=== PATIENT | male | born 1950 | race Caucasian/White ===

== ENCOUNTER 2022-12-22 10:17 | Inpatient (IN) ==
--- NOTE | 2022-12-22 10:47 | Emergency Department Note ---
ED Visit Note Patient seen in conjunction with Dr. Hartman. For more details, please refer to their note. . Resident Activity Tracking Resident Involvement: Resident Care Provided Care Provided: Adult ED
--- NOTE | 2022-12-22 10:49 | Emergency Department Note ---
Impression & Plan Substernal chest pain, Bigeminy, Hypomagnesemia ED Provider Note Name: FAVIOLA Barroso PAGE Age: 72 Sex: M Arrives Via: Walk-In Informant: Patient ED Provider: George Coker MD Chief Complaint: Chest pain Impression: As per impressions above Medical Decision Makin-year-old male arrives for evaluation of chest pain. Patient notes exertional chest pain for the last 4 days. He does have a history of known CAD but states he been doing well for some time. Does have a history of diabetes, hypertension, dyslipidemia and nicotine use. On arrival patient has no further chest pain. He has clear evidence of bigeminy with a pulse in the 30s/40s but heart rate in the 60s/70s. BP is good and stable. Laboratory work-up reveals normal troponin at this time so no evidence of ACS this point but in the setting of the significant exertional chest pain and low pulse discussed with hospitalist for cardiac rule out and further work-up. Patient does have mildly low magnesium which was repleted while here in the ER. Triage/Nursing Notes reviewed by Me Differentials:Cardiac ischemia, aortic dissection, pulmonary embolism, pneumothorax, pneumonia, pericarditis, myocarditis, esophageal rupture, GERD, cholecystitis, pancreatitis, musculoskeletal, as well as other pathologies. Vital Signs: reviewed and remarkable for no significant abnormalities Interventions: Normal saline bolus IV, magnesium 1 g IV Labs:Reviewed and remarkable for normal troponin, low magnesium all other labs reviewed by me Imagin view chest x-ray as per my informal interpretation reveals no infiltrate, effusion, pneumothorax, widened mediastinum EKG:As per my interpretation. Indication chest pain with exertion. Bigeminy with a rate of 69 and a QTc of 458. There is no overt ischemic finding. No previous EKG for comparison Cardiac/Tele Monitoring: Cardiac Monitoring: An Order was placed for continuous cardiac monitoring. The monitor shows a rate of 60 with a bigeminy rhythm. Consults:Dr Ag Landers hospitalist Plan: Disposition: Hospitalist Condition: Good History of Present Illness:72-year-old gentleman arrives for evaluation of chest discomfort. Patient notes for the last 4 days worsening chest discomfort. Worse with exertion. Denies any shortness of breath, syncope, nausea, vomiting or other concerning signs or symptoms. Denies any falls, trauma, injuries. Has a history of double bypass about 10 years ago. Does vape nicotine products. Has a history of hypertension, dyslipidemia, diabetes. Denies any current symptoms. Past History:CAD status post bypass, hypertension, dyslipidemia, smoker Home Medications:Farxiga, Lantus, metoprolol amongst other Allergies:Denies any drug allergies Vitals:Blood Pressure: 155/70, Pulse 70, RR 19, T 36.6C, O2 96% on RA Physical Exam: GENERAL: Patient is well appearing and in no acute distress. RESPIRATORY: No dyspnea. Clear to auscultation and equal bilaterally. No wheeze, no rhonchi. CARDIOVASCULAR: Bradycardic periodically irregular no murmur appreciated GASTROINTESTINAL: Abdomen soft, non-tender, no peritonitis.Bowel sounds positive.No masses appreciated. EXTREMITIES: Normal motion all extremities, no cyanosis, no edema. NEUROLOGIC: Alert and oriented, no focal neurologic deficit appreciated SKIN: No rash, no jaundice, no diaphoresis. PSYCH: Appropriate GCS: 15 ED Course: Times/Reassessments: Patient stable throughout no further chest pain and agreeable to hospitalization George Coker MD Past Med/Surg History Medical History Diabetes Heart disease Hypertension Surgical History H/O heart bypass surgery Social History Smoking Status: Current every day smoker Hx Alcohol Use: No Hx Substance Use: No Current Living Situation Comment: Lives with his sister current occupational status: retired Feels Safe at Home: Yes Allergies Allergies Allergy/AdvReac Type Severity Reaction Status Date / Time antibiotics AdvReac Diarrhea Uncoded 12/22/22 12:07 Home Meds Home Medications Medication Instructions Recorded Confirmed aspirin 81 mg capsule 81 mg PO DAILY 12/22/22 12/22/22 dapagliflozin propanediol 10 mg 10 mg PO DAILY 12/22/22 12/22/22 tablet (Farxiga) insulin glargine 100 unit/mL (3 30 unit subcut HS 12/22/22 12/22/22 mL) subcutaneous pen (Lantus Solostar U-100 Insulin) metoprolol succinate 50 mg 50 mg PO BID 12/22/22 12/22/22 tablet,extended release 24 hr omeprazole 40 mg capsule,delayed 40 mg PO DAILY 12/22/22 12/22/22 release rosuvastatin 40 mg tablet 40 mg PO HS 12/22/22 12/22/22 sacubitril 97 mg-valsartan 103 mg 1 tab PO BID 12/22/22 12/22/22 tablet (Entresto) Results & Data (ED) Vital Signs Vital Signs - 24 hr 12/22/22 10:21 12/22/22 10:30 12/22/22 10:40 Temperature 36.6 C Temperature Source Temporal Artery Scan Pulse Rate 37 L 69 70 Pulse Rate [Apical] Pulse Rhythm [Apical] Respiratory Rate 20 19 Respiratory Effort / Characteristics Non-Labored Respiratory Depth Normal Blood Pressure 131/68 155/70 H Blood Pressure [Right Arm] Blood Pressure Mean 89 98 Blood Pressure Mean [Right Arm] Pulse Oximetry 95 96 Oxygen Delivery Method Room Air Room Air Sepsis Recent Fever Within 48 Hours No Sepsis New/Unexplained Change in Mental Status N/A Sepsis Action Taken by Nursing No Action Required 12/22/22 12:40 12/22/22 13:40 Temperature Temperature Source Pulse Rate 67 Pulse Rate [Apical] 76 Pulse Rhythm [Apical] Irregular Respiratory Rate 16 18 Respiratory Effort / Characteristics Non-Labored Respiratory Depth Normal Blood Pressure 151/50 H Blood Pressure [Right Arm] 130/80 Blood Pressure Mean 83 Blood Pressure Mean [Right Arm] 96 Pulse Oximetry 95 93 Oxygen Delivery Method Room Air Sepsis Recent Fever Within 48 Hours Sepsis New/Unexplained Change in Mental Status Sepsis Action Taken by Nursing Laboratory Data 12/22/22 10:31 12/22/22 10:31 Lab Results 12/22/22 12/22/22 12/22/22 Range/Units 10:31 10:31 10:31 WBC 5.44 (4.8-10.8) K/ul RBC 5.61 (4.70-6.10) M/uL Hgb 14.5 (14.0-18.0) g/dl POC Hgb (14.0-18.0) g/dl Hct 43.8 (42.0-52.0) % POC Hct (42-52) % MCV 78.1 L (80.0-100.0) fL MCH 25.8 (25.0-34.0) pg MCHC 33.1 (32.0-36.0) g/dL RDW Std Deviation 44.7 (36.4-46.3) fL RDW Coeff of Miriam 15.9 H (11.5-14.5) % Plt Count 124 L (130-400) K/uL MPV 10.2 (9.4-12.4) fL Immature Gran % (Auto) 0.4 % Neut % (Auto) 64.3 % Lymph % (Auto) 18.0 % Benton % (Auto) 10.3 % Eos % (Auto) 6.3 % Baso % (Auto) 0.7 % Neut # (Auto) 3.50 (1.40-6.50) K/uL Lymph # (Auto) 0.98 L (1.20-3.40) K/uL Benton # (Auto) 0.56 (0.11-0.59) K/uL Eos # (Auto) 0.34 (0.00-0.50) K/uL Baso # (Auto) 0.04 (0.00-0.20) K/uL Immature Gran # (Auto) 0.02 (0.01-0.20) K/uL POC Sodium (135-144) mmol/L Sodium 140 (136-145) mmol/L POC Potassium (3.3-5.0) mmol/L Potassium 4.2 (3.5-5.1) mmol/L POC Chloride (101-112) mmol/L Chloride 108 H (98-107) mmol/L Carbon Dioxide 26 (21-32) mmol/L POC Total CO2 (24-31) mmol/L Anion Gap 6 (3-11) POC Anion Gap (16-25) mmol/L POC BUN (7-18) mg/dl BUN 15 (6-23) mg/dl Creatinine 1.29 (0.6-1.4) mg/dl POC Creatinine (0.6-1.3) mg/dl Est Cr Clr Drug Dosing Not Reportable Est GFR ( Amer) 64.7 ml/min Est GFR (Non-Af Amer) 55.8 ml/min BUN/Creatinine Ratio 11.6 (10-20) Glucose 148 H (70-99(Fasting)) mg/dl POC Glucose (other) (70-99) mg/dl Calcium 8.8 (8.6-10.3) mg/dl POC Ioniz Calcium Salma (1.12-1.32) mmol/l Magnesium 1.5 L (1.7-2.4) mg/dl Total Bilirubin 0.6 (0.2-1.0) mg/dl Direct Bilirubin 0.1 (0-0.2) mg/dl AST 17 (13-39) U/L ALT 18 (7-52) U/L Alkaline Phosphatase 43 (34-104) U/L Troponin I High Sens 8.6 (0-20) pg/ml Total Protein 6.2 (6.0-8.3) gm/dl Albumin 3.9 (3.4-5.0) gm/dl Lyme Disease IgG Ab Negative (Negative) Lyme Disease IgM Ab Negative (Negative) 12/22/22 Range/Units 10:37 WBC (4.8-10.8) K/ul RBC (4.70-6.10) M/uL Hgb (14.0-18.0) g/dl POC Hgb 15.3 (14.0-18.0) g/dl Hct (42.0-52.0) % POC Hct 45 (42-52) % MCV (80.0-100.0) fL MCH (25.0-34.0) pg MCHC (32.0-36.0) g/dL RDW Std Deviation (36.4-46.3) fL RDW Coeff of Miriam (11.5-14.5) % Plt Count (130-400) K/uL MPV (9.4-12.4) fL Immature Gran % (Auto) % Neut % (Auto) % Lymph % (Auto) % Benton % (Auto) % Eos % (Auto) % Baso % (Auto) % Neut # (Auto) (1.40-6.50) K/uL Lymph # (Auto) (1.20-3.40) K/uL Benton # (Auto) (0.11-0.59) K/uL Eos # (Auto) (0.00-0.50) K/uL Baso # (Auto) (0.00-0.20) K/uL Immature Gran # (Auto) (0.01-0.20) K/uL POC Sodium 143 (135-144) mmol/L Sodium (136-145) mmol/L POC Potassium 4.2 (3.3-5.0) mmol/L Potassium (3.5-5.1) mmol/L POC Chloride 105 (101-112) mmol/L Chloride (98-107) mmol/L Carbon Dioxide (21-32) mmol/L POC Total CO2 23 L (24-31) mmol/L Anion Gap (3-11) POC Anion Gap 20.0 (16-25) mmol/L POC BUN 14 (7-18) mg/dl BUN (6-23) mg/dl Creatinine (0.6-1.4) mg/dl POC Creatinine 1.3 (0.6-1.3) mg/dl Est Cr Clr Drug Dosing Est GFR ( Amer) ml/min Est GFR (Non-Af Amer) ml/min BUN/Creatinine Ratio (10-20) Glucose (70-99(Fasting)) mg/dl POC Glucose (other) 149 H (70-99) mg/dl Calcium (8.6-10.3) mg/dl POC Ioniz Calcium Salma 1.17 (1.12-1.32) mmol/l Magnesium (1.7-2.4) mg/dl Total Bilirubin (0.2-1.0) mg/dl Direct Bilirubin (0-0.2) mg/dl AST (13-39) U/L ALT (7-52) U/L Alkaline Phosphatase (34-104) U/L Troponin I High Sens (0-20) pg/ml Total Protein (6.0-8.3) gm/dl Albumin (3.4-5.0) gm/dl Lyme Disease IgG Ab (Negative) Lyme Disease IgM Ab (Negative) Administered Medications Magnesium Sulfate/Dextrose (Magnesium Sulfate / D5w) 1 gm in 100 mls @ 50 mls/hr IV ONE ONE Stop: 12/22/22 15:59 Last Admin: 12/22/22 13:45 Dose: 50 mls/hr Documented By: KAREEM Discontinued Medications Magnesium Sulfate/Dextrose (Magnesium Sulfate / D5w) 1 gm in 100 mls @ 100 mls/hr IV NOW STA Stop: 12/22/22 12:32 Last Infusion: 12/22/22 13:02 Dose: 0 mls/hr Documented By: Admin: 12/22/22 12:02 Dose: 100 mls/hr Documented By: KIRK Nicotine (Nicotine 21 Mg/24 Hr Tdsy) 21 mg TD NOW ONE Stop: 12/22/22 12:46 Last Admin: 12/22/22 12:40 Dose: 21 mg Documented By: KIRK Imaging Data Radiologist's Impression: Chest X-Ray 12/22/22 10:39 XR chest 1V portable CLINICAL HISTORY: chest pressure TECHNIQUE: Single frontal radiograph of the chest was obtained. Comparison: None available at the time of this dictation. FINDINGS: Median sternotomy wires are unchanged. Cardiomegaly is noted. The lungs are clear. No evidence of pleural effusion or pneumothorax. IMPRESSION: No acute chest disease. Cardiomegaly is noted. ACT 112: Negative or not required by law. Electronically signed by: Latrell Pham M.D. 12/22/2022 11:01 AM Discharge Plan Visit Data Chief Complaint: Chest Pain Stated Complaint: HAVING TROUBLE WITH HIS HEART ED Provider: George Coker Discharge Problem: Substernal chest pain, Bigeminy, Hypomagnesemia Forms Stand Alone Forms: [facility] Prescriptions Prescriptions: No Action omeprazole 40 mg capsule,delayed release(DR/EC) 40 mg PO DAILY rosuvastatin 40 mg tablet 40 mg PO HS insulin glargine [Lantus Solostar U-100 Insulin] 100 unit/mL (3 mL) insulin pen 30 unit SUBCUT HS Entresto 97-103 mg tablet 1 tab PO BID aspirin 81 mg Capsule 81 mg PO DAILY metoprolol succinate 50 mg tablet extended release 24 hr 50 mg PO BID Farxiga 10 mg tablet 10 mg PO DAILY Referrals Referrals: Alin Evans PA-C [Primary Care Provider] -
[2022-12-22 10:50] LABS: iSTAT Creatinine 1.3 mg/dl (0.6-1.3); iSTAT Hemoglobin 15.3 g/dl (14.0-18.0); iSTAT Ionized Calcium 1.17 mmol/l (1.12-1.32); iSTAT Potassium 4.2 mmol/L (3.3-5.0)
--- NOTE | 2022-12-22 11:02 | XRay Report ---
XR chest 1V portable CLINICAL HISTORY: chest pressure TECHNIQUE: Single frontal radiograph of the chest was obtained. Comparison: None available at the time of this dictation. FINDINGS: Median sternotomy wires are unchanged. Cardiomegaly is noted. The lungs are clear. No evidence of ple ural effusion or pneumothorax. IMPRESSION: No acute chest disease. Cardiomegaly is noted. ACT 112: Negative or not required by law. Electronically signed by: Latrell Pham M.D. 12/22/2022 11:01 AM
[2022-12-22 11:09] LABS: Basophils # (auto) 0.04 K/uL (0.00-0.20); Basophils % (auto) 0.7 %; Eosinophils # (auto) 0.34 K/uL (0.00-0.50); Eosinophils % (auto) 6.3 %; Hematocrit (blood only) 43.8 % (42.0-52.0); Hemoglobin 14.5 g/dl (14.0-18.0); Immature Granulocytes # (auto) 0.02 K/uL (0.01-0.20); Immature Granulocytes % (auto) 0.4 %; Lymphocytes # (auto) 0.98 K/uL (1.20-3.40); Mean Corpuscular Hemoglobin 25.8 pg (25.0-34.0); Mean Corpuscular Hgb Conc 33.1 g/dL (32.0-36.0); Mean Corpuscular Volume 78.1 fL (80.0-100.0); Mean Platelet Volume 10.2 fL (9.4-12.4); Monocytes # (auto) 0.56 K/uL (0.11-0.59); Monocytes % (auto) 10.3 %; Neutrophils % (auto) 64.3 %; Platelet Count 124 K/uL (130-400); RDW Coefficient of Variation 15.9 % (11.5-14.5); RDW Standard Deviation 44.7 fL (36.4-46.3); Red Blood Count 5.61 M/uL (4.70-6.10); White Blood Count 5.44 K/ul (4.8-10.8)
[2022-12-22 11:29] LABS: Alanine Aminotransferase 18 U/L (7-52); Albumin Level 3.9 gm/dl (3.4-5.0); Alkaline Phosphatase 43 U/L (34-104); Anion Gap 6 (3-11); Aspartate Aminotransferase 17 U/L (13-39); BUN Creatinine Ratio 11.6 (10-20); Bilirubin Direct 0.1 mg/dl (0-0.2); Bilirubin,Total 0.6 mg/dl (0.2-1.0); Blood Urea Nitrogen 15 mg/dl (6-23); Calcium 8.8 mg/dl (8.6-10.3); Carbon Dioxide 26 mmol/L (21-32); Chloride 108 mmol/L (98-107); Est GFR (African American) 64.7 ml/min; Est GFR (Non-African American) 55.8 ml/min; Glucose 148 mg/dl (70-99(Fasting)); Magnesium 1.5 mg/dl (1.7-2.4); Potassium 4.2 mmol/L (3.5-5.1); Sodium 140 mmol/L (136-145); Total Protein 6.2 gm/dl (6.0-8.3)
[2022-12-22] MEDS ORDERED: MAGNESIUM SULFATE / D5W 1 GM/100 ML BAG IV STA (11:33)
[2022-12-22 11:35] LABS: Troponin I High Sensitivity 8.6 pg/ml (0-20)
[2022-12-22] MEDS ORDERED: NICOTINE 21 MG/24 HR TDSY TD ONE (12:45)
--- NOTE | 2022-12-22 12:49 | History & Physical Report ---
Date of Service December 22, 2022 Assessment & Plan (1) Chest pain: (2) Bigeminy: (3) History of CAD (coronary artery disease): Plan: Admit to telemetry Patient presenting from home with reports of exertional shortness of breath, chest discomfort, palpitations. There are no outside records available to review at this time. Patient reports history of CABG x2 in 2011. Follows with general maintenance engineer Dr. Jimenez with [facility]. In the ED, EKG shows sinus rhythm with bigeminy Initial HS troponin negative Check Lyme screen Continue to trend troponin, resting echo ? Underlying CHF given that patient is on Entresto -- will obtain records from PCP and general maintenance engineer Continue ASA, statin, beta-sánchez Cardiology consult, Dr. Conrad notified by ED provider (4) Diabetes: Plan: Unknown Hgb A1c, will check with a.m. labs Hold oral agents, continue Lantus, add NovoLog per protocol DVT PROPHYLAXIS SQ Lovenox Patient seen in collaboration with Dr. Luong I spent a total of 75 minutes coordinating, documenting, and providing care for this patient excluding time spent in the performance of separately billed services. This included personally reviewing all current laboratories and imaging studies, medication reconciliation, outpatient chart review, and discussion with specialists. History of Present Illness Chief Complaint: Shortness of breath, chest pain Primary Care Provider: Alin Evans PA-C 72-year-old male with PMH CAD s/p CABG x 2 2011, DM type II, GERD, and other problems listed below who presents to the ED for evaluation of chest pain and shortness of breath. History obtained from the patient. There are no outside records to review. Patient reports exertional shortness of breath over the past 4 days. He reports a "strange feeling" in his chest that he states he cannot describe. Reports symptoms are similar to what he had prior to his CABG in 2012. He reports he feels palpitations at night when he lies down. Denies orthopnea and lower extremity edema. No lightheadedness, dizziness, diaphoresis, syncopal events. States he has a chronic cough from smoking history, cough is slightly worse than baseline. Cough is nonproductive. Denies fevers and chills. No abdominal pain, nausea, vomiting, diarrhea. Denies urinary symptoms. In the ED, EKG shows a sinus rhythm with bigeminy. Vitals are stable. Initial HS troponin is negative. Allergies Allergy/AdvReac Type Severity Reaction Status Date / Time antibiotics AdvReac Diarrhea Uncoded 12/22/22 12:07 Home Medications Medication Instructions Recorded Confirmed Type aspirin 81 mg capsule 81 mg PO DAILY 12/22/22 12/22/22 History dapagliflozin propanediol 10 mg 10 mg PO DAILY 12/22/22 12/22/22 History tablet (Farxiga) insulin glargine 100 unit/mL (3 30 unit subcut HS 12/22/22 12/22/22 History mL) subcutaneous pen (Lantus Solostar U-100 Insulin) metoprolol succinate 50 mg 50 mg PO BID 12/22/22 12/22/22 History tablet,extended release 24 hr omeprazole 40 mg capsule,delayed 40 mg PO DAILY 12/22/22 12/22/22 History release rosuvastatin 40 mg tablet 40 mg PO HS 12/22/22 12/22/22 History sacubitril 97 mg-valsartan 103 mg 1 tab PO BID 12/22/22 12/22/22 History tablet (Entresto) Past Med/Surg History Medical History Diabetes Heart disease Hypertension Surgical History H/O heart bypass surgery Social History Smoking Status: Current every day smoker Hx Alcohol Use: No Hx Substance Use: No Current Living Situation Comment: Lives with his sister current occupational status: retired Feels Safe at Home: Yes Review of Systems Review of Systems: All systems reviewed & are unremarkable except as noted in HPI & below Physical Exam Physical Exam: please refer to Dr. Luong's addendum for physical exam Results & Data Results & Data Vital Signs (Past 12 Hours) Vital Signs Temp Pulse Resp BP Pulse Ox O2 Del Method 12/22/22 10:40 70 19 155/70 H 96 Room Air 12/22/22 10:30 69 12/22/22 10:21 36.6 C 37 L 20 131/68 95 Room Air Laboratory Results Short CBC 12/22/22 Range/Units 10:31 WBC 5.44 (4.8-10.8) K/ul Hgb 14.5 (14.0-18.0) g/dl Hct 43.8 (42.0-52.0) % Plt Count 124 L (130-400) K/uL BMP 12/22/22 10:31 Sodium 140 Potassium 4.2 Chloride 108 H Carbon Dioxide 26 BUN 15 Creatinine 1.29 Glucose 148 H Calcium 8.8 Liver Function 12/22/22 Range/Units 10:31 Total Bilirubin 0.6 (0.2-1.0) mg/dl Direct Bilirubin 0.1 (0-0.2) mg/dl AST 17 (13-39) U/L ALT 18 (7-52) U/L Alkaline Phosphatase 43 (34-104) U/L Albumin 3.9 (3.4-5.0) gm/dl Diagnostic Findings Chest X-Ray 12/22/22 10:39 XR chest 1V portable CLINICAL HISTORY: chest pressure TECHNIQUE: Single frontal radiograph of the chest was obtained. Comparison: None available at the time of this dictation. FINDINGS: Median sternotomy wires are unchanged. Cardiomegaly is noted. The lungs are clear. No evidence of pleural effusion or pneumothorax. IMPRESSION: No acute chest disease. Cardiomegaly is noted. ACT 112: Negative or not required by law. Electronically signed by: Latrell Pham M.D. 12/22/2022 11:01 AM Code Status & VTE Plan VTE Prophylaxis Plan VTE Prophylaxis will be ordered: Yes Supervising Physician Co-Signing Physician Notes Pt seen and examined by me, care coordinated w/ Alma DOMINGUEZ, pls refer to her note above for further detail. Pt is 72 yo M with CAD s/p CABG x 2 in 2012, DM type II on insulin, GERD,who presents with chest pain and shortness of breath. Pt follows w/ PCP and cardiology at [facility] and this time there are no records to review, records were requested. Patient reports exertional shortness of breath over the past 4 days, and palpitations, denies any chest pressure or chest pain and cannot quite describe the feeling. Reports symptoms are similar to what he had prior to his CABG in 2012. No lightheadedness, dizziness, diaphoresis, syncopal events. States he has a chronic cough from smoking, perhaps slightly worse than baseline. Cough is nonproductive. Denies fevers and chills. No abdominal pain, nausea, vomiting, diarrhea. Denies urinary symptoms. He is laying in bed currently in ED in [facility]. reports no discomfort. pads applied on pt's chest. Pt is awake oriented, answering appropriately. Lung exam w/ positive mild diffuse rhonchi, no wheezing. Heart sounds regular/ bradycardic w/ ectopy. No LE edema noted. Abdomen soft, nontender. Skin is warm and dry. In the ED, EKG shows a sinus rhythm with bigeminy. Initial HS troponin is negative. Cardiology notified by ED provider - will further consult with them. Will obtain echocardiogram and continue trend troponin, and monitor on tele. MD Ag
[2022-12-22 13:30] LABS: Lyme Ab IgG w/WB Rflx Negative (Negative); Lyme Ab IgM w/WB Rflx Negative (Negative)
[2022-12-22] MEDS ORDERED: MAGNESIUM SULFATE / D5W 1 GM/100 ML BAG IV ONE (14:00)
[2022-12-22] MEDS ORDERED: CARBOHYDRATES FOR HYPOGLYCEMIA PO PRN (15:03)
[2022-12-22] MEDS ORDERED: ACETAMINOPHEN 325 MG TAB PO PRN (15:03)
[2022-12-22] MEDS ORDERED: GLUCOSE 10 TAB/TUBE PO PRN (15:03)
[2022-12-22] MEDS ORDERED: GLUCOSE 40% GEL 15 GM TUBE PO PRN (15:03)
[2022-12-22] MEDS ORDERED: GLUCAGON FOR INJ 1 MG VIAL SQ PRN (15:03)
[2022-12-22] MEDS ORDERED: DEXTROSE 50% 50 ML SYRINGE IV PRN (15:03)
[2022-12-22] MEDS: ENOXAPARIN INJ 40 MG/0.4 ML SYR SQ SCH (16:58)
--- NOTE | 2022-12-22 17:08 | Cardiology Consultation ---
Date of Consultation December 22, 2022 Assessment & Plan (1) Acute heart failure with preserved ejection fraction (HFpEF): (2) Substernal chest pain: (3) Dyspnea on exertion: (4) CAD (coronary artery disease): (5) S/P CABG x 2: (6) S/P coronary artery stent placement: (7) Dyslipidemia: (8) Frequent PVCs: Plan ASSESSMENT/PLAN: 1. Acute heart failure with preserved EF/dyspnea on exertion: No obvious JVD but has lower extremity edema which has recently worsened and does not maintain a low-sodium diet. Presumably has a history of heart failure based on his medications. Lasix 20 mg IV x1. Clinical history suggestive of hypervolemia. Low-sodium diet, less than 2000 mg daily. Strict I's and O's while hospitalized. Daily weights. We discussed the importance of a low-sodium diet at home as well. BNP and TSH ordered. D-dimer ordered. BNP significantly elevated. Based on his history, may have heart failure with improved EF. Continue SGLT2 inhibitor, Entresto, metoprolol succinate. 2. Chest pain: Given exertional mild chest discomfort and exertional dyspnea, if symptoms do not resolve with treatment as above, would consider noninvasive ischemic evaluation. No rest pain. High-sensitivity troponin is negative. Could be related to heart failure/hypervolemia. 3. CAD s/p PCI and then CABG x 2: Details not known. Records requested from previous cardiologists in [place] and [facility]. Continue aspirin 81 mg daily. Continue beta-sánchez and high intensity statin therapy. 4. Smoking: Recommended that he stop smoking altogether. 5. Hypertension: Blood pressure normotensive to mildly hypertensive. Blood pressure may improve with diuretic as above. 6. Dyslipidemia: Continue high intensity statin therapy. Goal LCL < 70. 7. PVCs: Reports palpitations at night but otherwise denies palpitations. PVCs not likely responsible for his presentation. Reported low pulse, appears to represent pulse deficit on palpation but heart rate is reasonable on telemetry. Discussed the diagnosis. Echo completed. 8. Edema: Asymmetric, worse in the left lower extremity. Likely due to history of vein harvest from the left lower extremity but recommend Doppler to evaluate for DVT. 9. Disposition: Cardiology will continue to follow. Follow-up with Dr. Jimenez of [facility] upon discharge. Patient care communicated with Dennise Lima of the admitting hospitalist service. Thank you for allowing me to participate in the care of your patient. Please call for any other questions or concerns. Sincerely, Donal Conrad M.D. History of Present Illness Reason for Consultation: Chest pain, PVCs Requesting Physician: Dennise Lima Attending Physician: Javier Luong MD History of Present Illness Mr. Veras is a very pleasant 72-year-old gentleman with a history significant for CAD s/p PCI followed by CABG x 2 ([place] 2011), prior cardial infarction, type 2 diabetes, hypertension, and dyslipidemia. He also has a possible history of cardiomyopathy and heart failure. He receives most of his cardiology care in [place] and reports having a PCI followed 2 days later by CABG x2 in 2011. He does not know the details. He moved to [place] a few years ago and has been seen by Dr. Jimenez in [facility] on 2 occasions. Unfortunately there are no available records for review in regards to his cardiac history. He believes he had multiple myocardial infarctions in the past and after discussion, recalls being told that his heart was weakened. He does not recall being told that he has heart failure but has been taking Entresto, Farxiga, and metoprolol succinate. For the past 4 to 5 days, he has had worsening dyspnea on exertion climbing stairs and in general. It feels like there is something in his chest and had a hard time explaining it and said if he had to describe it as a pain he would use the word pressure but very mild. It is a substernal chest discomfort that occurs also with exertion. He has mild orthopnea over the past 4 to 5 days and noted that his left foot has been more swollen than his right. He recalls having a swollen left leg following CABG many years ago but until the past 4 to 5 days, no recent edema. He denies palpitations in general unless he is laying in bed when he feels as though his heart is racing. He denies syncope, near syncope, melena, hematochezia, or hematuria. He adds salt to his food and does not maintain a low-sodium diet. He does not weigh himself regularly. He has not been on a diuretic. In the emergency department, it was noted that he is in sinus rhythm but with PVCs, occasionally in a bigeminal pattern. I was called while he was in the emergency department about bradycardia noted while checking a manual pulse, although heart rate on the monitor was in the 60s. He was asymptomatic with these PVCs while sitting in the emergency department. Review of systems: As above. Review of systems otherwise negative/unremarkable. Family history: Noncontributory. Social history: Has smoked 1.5 packs of cigarettes per day in the past and currently vapes. Denies alcohol or drug abuse. He lives alone. x2. No children. 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 He was unaccompanied. Allergies Allergy/AdvReac Type Severity Reaction Status Date / Time antibiotics AdvReac Diarrhea Uncoded 12/22/22 12:07 Home Medications Medication Instructions Recorded Confirmed Type aspirin 81 mg capsule 81 mg PO DAILY 12/22/22 12/22/22 History dapagliflozin propanediol 10 mg 10 mg PO DAILY 12/22/22 12/22/22 History tablet (Farxiga) insulin glargine 100 unit/mL (3 30 unit subcut HS 12/22/22 12/22/22 History mL) subcutaneous pen (Lantus Solostar U-100 Insulin) metoprolol succinate 50 mg 50 mg PO BID 12/22/22 12/22/22 History tablet,extended release 24 hr omeprazole 40 mg capsule,delayed 40 mg PO DAILY 12/22/22 12/22/22 History release rosuvastatin 40 mg tablet 40 mg PO HS 12/22/22 12/22/22 History sacubitril 97 mg-valsartan 103 mg 1 tab PO BID 12/22/22 12/22/22 History tablet (Entresto) Patient History Medical History CAD (coronary artery disease) Dyslipidemia Frequent PVCs Hypertension Type 2 diabetes mellitus Surgical History (Updated 12/22/22 @ 22:19 by Heath Conrad MD) S/P CABG x 2 S/P coronary artery stent placement Social History Smoking Status: Current every day smoker Tobacco Type: E-cigarettes / Vaping Tobacco Cessation Education Requested by Patient: No Hx Alcohol Use: No Hx Substance Use: No Preferred Language: Spanish Communication Ability: Effective Town Clerk Required: No Beliefs That Will Affect Care: None Current Living Situation: Alone Current Living Situation Comment: Lives with his sister current occupational status: retired Other Information That Helps Us Care for You: No Feels Safe at Home: Yes Safety Concerns: Feels Safe At This Time Assistive Devices: None Physical Exam Physical Exam: Gen.: No acute distress. Alert and oriented. HEENT: Anicteric sclera. Neck: No appreciable JVD or hepatojugular reflux while sitting upright. No bruits. Normal carotid upstrokes bilaterally. Cardiac: No ventricular heave. Regular with ectopy. Normal S1-S2. No murmurs, rubs, or gallops. Pulmonary: Clear to auscultation bilaterally without wheezes, rales, or rhonchi. Abdomen: Soft, nontender, nondistended, with normoactive bowel sounds. No bruits noted. Extremities: 2+ radial pulses bilaterally. 1+ posterior tibialis pulses bilaterally. 1+ left lower extremity edema. Trace right lower extremity edema. (s/p left SVG harvest). No cyanosis. Psychiatric: Affect appears appropriate. Results & Data Vital Signs (Past 12 Hours) Vital Signs Temp Pulse Pulse Resp BP BP Pulse Ox 12/22/22 16:00 12/22/22 16:00 36.6 C 64 16 140/70 98 12/22/22 14:31 57 L 12/22/22 13:40 67 18 151/50 H 93 12/22/22 12:40 76 16 130/80 95 12/22/22 10:40 70 19 155/70 H 96 12/22/22 10:30 69 12/22/22 10:21 36.6 C 37 L 20 131/68 95 Pulse Ox O2 Del Method O2 Del Method 12/22/22 16:00 99 Room Air 12/22/22 16:00 Room Air 12/22/22 14:31 12/22/22 13:40 12/22/22 12:40 Room Air 12/22/22 10:40 Room Air 12/22/22 10:30 12/22/22 10:21 Room Air Laboratory Results Laboratory Results - last 24 hr 12/22/22 12/22/22 12/22/22 10:31 10:31 10:31 WBC 5.44 RBC 5.61 Hgb 14.5 POC Hgb Hct 43.8 POC Hct MCV 78.1 L MCH 25.8 MCHC 33.1 RDW Std Deviation 44.7 RDW Coeff of Miriam 15.9 H Plt Count 124 L MPV 10.2 Immature Gran % (Auto) 0.4 Neut % (Auto) 64.3 Lymph % (Auto) 18.0 Hayes % (Auto) 10.3 Eos % (Auto) 6.3 Baso % (Auto) 0.7 Neut # (Auto) 3.50 Lymph # (Auto) 0.98 L Hayes # (Auto) 0.56 Eos # (Auto) 0.34 Baso # (Auto) 0.04 Immature Gran # (Auto) 0.02 POC Sodium Sodium 140 POC Potassium Potassium 4.2 POC Chloride Chloride 108 H Carbon Dioxide 26 POC Total CO2 Anion Gap 6 POC Anion Gap POC BUN BUN 15 Creatinine 1.29 POC Creatinine Est Cr Clr Drug Dosing Not Reportable Est GFR ( Amer) 64.7 Est GFR (Non-Af Amer) 55.8 BUN/Creatinine Ratio 11.6 Glucose 148 H POC Glucose (other) Calcium 8.8 POC Ioniz Calcium Salma Magnesium 1.5 L Total Bilirubin 0.6 Direct Bilirubin 0.1 AST 17 ALT 18 Alkaline Phosphatase 43 Troponin I High Sens 8.6 Total Protein 6.2 Albumin 3.9 Lyme Disease IgG Ab Negative Lyme Disease IgM Ab Negative 12/22/22 12/22/22 10:37 16:20 WBC RBC Hgb POC Hgb 15.3 Hct POC Hct 45 MCV MCH MCHC RDW Std Deviation RDW Coeff of Miriam Plt Count MPV Immature Gran % (Auto) Neut % (Auto) Lymph % (Auto) Hayes % (Auto) Eos % (Auto) Baso % (Auto) Neut # (Auto) Lymph # (Auto) Hayes # (Auto) Eos # (Auto) Baso # (Auto) Immature Gran # (Auto) POC Sodium 143 Sodium POC Potassium 4.2 Potassium POC Chloride 105 Chloride Carbon Dioxide POC Total CO2 23 L Anion Gap POC Anion Gap 20.0 POC BUN 14 BUN Creatinine POC Creatinine 1.3 Est Cr Clr Drug Dosing Est GFR ( Amer) Est GFR (Non-Af Amer) BUN/Creatinine Ratio Glucose POC Glucose (other) 149 H Calcium POC Ioniz Calcium Salma 1.17 Magnesium Total Bilirubin Direct Bilirubin AST ALT Alkaline Phosphatase Troponin I High Sens 9.1 Total Protein Albumin Lyme Disease IgG Ab Lyme Disease IgM Ab Diagnostic Findings Echo personally reviewed from 12/22/2022 (interpreted by [facility] [employer]): Analysis likely affected by frequent PVCs but overall, LV systolic function appears normal. Estimated EF 55 to 60%. No obvious regional wall motion abnormalities. Mild to moderate MR. Top normal RVSP; 37 mmHg. ECG personally reviewed 12/22/2022: Sinus rhythm with frequent PVCs in a bigeminal pattern at 69 bpm. Nonspecific T wave abnormality. Labs reviewed and notable for normal high-sensitivity troponin x2, normal potassium, hypomagnesemia, normal hemoglobin and mild thrombocytopenia. Chest x-ray 12/22/2022: No acute disease per radiology. Previous cardiology records requested for review from [place] home restoration service supervisor/facility and [facility] home restoration service supervisor, Dr. Jimenez. Discussed with ER nursing staff to send for records and sign medical release. Medications Administered Current Inpatient Medications Acetaminophen (Acetaminophen 325 Mg Tab) 650 mg PO Q4H PRN PRN Reason: Pain or Fever Stop: 01/21/23 15:02 Aspirin (Aspirin 81 Mg Ectab) 81 mg PO DAILY CLIF Stop: 01/22/23 08:59 Dextrose (Dextrose 50% 50 Ml Syringe) 25 - 50 ml IV UD PRN; Protocol PRN Reason: Hypoglycemia Protocol Stop: 01/21/23 15:02 Enoxaparin Sodium (Enoxaparin Inj 40 Mg/0.4 Ml Syr) 40 mg SQ Q24H CLIF Stop: 01/21/23 15:59 Last Admin: 12/22/22 16:58 Dose: 40 mg Furosemide (Furosemide Inj 20 Mg/2 Ml Vial) 20 mg IV ONE ONE Stop: 12/22/22 17:11 Glucagon (Glucagon For Inj 1 Mg Vial) 1 mg SQ UD PRN; Protocol PRN Reason: Hypoglycemia Protocol Stop: 01/21/23 15:02 Glucose (Glucose 10 Tab/Tube) 4 - 8 tab PO UD PRN; Protocol PRN Reason: Hypoglycemia Treatment Stop: 01/21/23 15:02 Glucose (Glucose 40% Gel 15 Gm Tube) 15 - 30 gm PO UD PRN; Protocol PRN Reason: Hypoglycemia Protocol Stop: 01/21/23 15:02 Insulin Aspart (Insulin Aspart Per Unit Charge) 0 units SC ACHS CLIF Stop: 01/21/23 16:29 Insulin Glargine (Lantus Per Unit Charge) 20 units SC HS CLIF Stop: 01/21/23 20:59 Metoprolol Succinate (Metoprolol Succ 50mg Ext Rel Tab) 50 mg PO BID CLIF Stop: 01/21/23 20:59 Miscellaneous (Remove Nicoderm Patch) 1 each N/A DAILY@0859 [facility] Stop: 01/21/23 08:58 Miscellaneous (Carbohydrates For Hypoglycemia ) 15 - 30 gm PO UD PRN PRN Reason: Hypoglycemia Protocol Stop: 01/21/23 15:02 Nicotine (Nicotine 21 Mg/24 Hr Tdsy) 21 mg TD QAM CLIF Stop: 01/22/23 08:59 Pantoprazole Sodium (Pantoprazole 40 Mg Tab) 40 mg PO DAILY [facility]; Protocol Stop: 01/22/23 08:59 Rosuvastatin Calcium (Rosuvastatin Calcium 20 Mg Tab) 40 mg PO HS [facility] Stop: 01/21/23 20:59 Sacubitril/Valsartan (Valsartan/Sacubitril 103/97mg Tab) 1 tab PO BID [facility] Stop: 01/21/23 20:59 PG Care Time/CCT Total # of Minutes Spent Total Time Spent with Patient: Total time spent is greater than 50% in coordination of care (as documented) at patient's floor/unit and/or counseling patient: Coding Level of Care Code 50691 INT INP/OBS CARE 3/75MIN Diagnoses Acute heart failure with preserved ejection fraction (HFpEF) I50.31 Substernal chest pain R07.2 Dyspnea on exertion R06.09 CAD (coronary artery disease) I25.10 S/P CABG x 2 Z95.1 S/P coronary artery stent placement Z95.5 Dyslipidemia E78.5 Frequent PVCs I49.3
[2022-12-22] MEDS ORDERED: FUROSEMIDE INJ 20 MG/2 ML VIAL IV ONE (17:10)
[2022-12-22] MEDS: INSULIN ASPART PER UNIT CHARGE SC SCH ×2 (17:52→20:42)
[2022-12-22 19:00] LABS: D Dimer 690 ug/L FEU (0-500)
[2022-12-22] MEDS: METOPROLOL SUCC 50MG EXT REL TAB PO SCH (20:39)
--- NOTE | 2022-12-22 20:39 | Ultrasound Report ---
ULTRASOUND LEFT LOWER EXTREMITY VENOUS CLINICAL HISTORY: Left leg swelling. COMPARISON STUDY: No priors. TECHNIQUE: Real-time, grayscale, and color Doppler sonography of the deep veins of the left lower ext remity was performed from the inguinal crease to the calf. Compression and augmentation were utilized . FINDINGS: There is no sonographic evidence of deep venous thrombosis identified in the left lower ext remity. The common femoral, superficial femoral, and popliteal veins are patent and normally compress ible. The greater saphenous vein and the profunda femoris vein at the junction with the common femora l vein are clear. The visualized calf veins are patent. IMPRESSION: There is no sonographic evidence of deep venous thrombosis identified in the left lower e xtremity. ACT 112: Negative or not required by law. Electronically signed by: Cisco Worthy M.D. 12/22/2022 8:37 PM
[2022-12-22] MEDS: VALSARTAN/SACUBITRIL 103/97MG TAB PO SCH (20:40)
[2022-12-22] MEDS: ROSUVASTATIN CALCIUM 20 MG TAB PO SCH (20:40)
[2022-12-22] MEDS: LANTUS PER UNIT CHARGE SC SCH (20:44)
[2022-12-23] MEDS ORDERED: IOVERSOL 350 MG 125mL Prefilled Syringe IV ONE (00:04)
--- NOTE | 2022-12-23 00:41 | CT Scan Report ---
Exam(s): CTA CHEST IV Amt: 116 ML OPTIRAY 350 EXAM: CT Angiography Chest With Intravenous Contrast CLINICAL HISTORY: Reason for exam: PE. TECHNIQUE: Axial computed tomographic angiography images of the chest with intravenous contrast. CTDI is 41 mGy and DLP is 814.13 mGy-cm. Automated exposure control was utilized for the study. A dose lowering technique was utilized adhering to the principles of ALARA. MIP reconstructed images were created and reviewed. COMPARISON: Comparison made to prior chest x-ray from the same day. FINDINGS: Pulmonary arteries: Unremarkable. No pulmonary embolism. Aorta: Ectasia of the ascending aorta measured 34 mm in diameter. No thoracic aortic aneurysm. Lungs: Moderate to the peribronchial thickening of the central and peripheral bronchi. No mass. No consolidation. Pleural space: Small bilateral pleural effusions. No significant effusion. No pneumothorax. Heart: Heavily calcified atherosclerotic disease of the coronary arteries. Cardiomegaly. No significant pericardial effusion. No evidence of RV dysfunction. Bones/joints: No acute fracture. No dislocation. Soft tissues: Bilateral thyroid nodules. Lymph nodes: Prominent mediastinal and hilar lymph nodes. IMPRESSION: No evidence of pulmonary emboli. Findings concern for bronchitis with small bilateral pleural effusions. Prominent mediastinal and hilar lymph nodes. Cardiomegaly with heavily calcified atherosclerotic disease of the coronary arteries. Electronically signed by: Brenda Peñaloza MD 12/23/22 00:40 AM
[2022-12-23 06:51] LABS: Hematocrit (blood only) 42.4 % (42.0-52.0); Hemoglobin 13.8 g/dl (14.0-18.0); Mean Corpuscular Hemoglobin 25.6 pg (25.0-34.0); Mean Corpuscular Hgb Conc 32.5 g/dL (32.0-36.0); Mean Corpuscular Volume 78.7 fL (80.0-100.0); Mean Platelet Volume 10.4 fL (9.4-12.4); Platelet Count 119 K/uL (130-400); RDW Coefficient of Variation 15.9 % (11.5-14.5); RDW Standard Deviation 44.8 fL (36.4-46.3); Red Blood Count 5.39 M/uL (4.70-6.10); White Blood Count 5.44 K/ul (4.8-10.8)
[2022-12-23 07:11] LABS: BUN Creatinine Ratio 11.6 (10-20); Calcium 8.6 mg/dl (8.6-10.3); Creatinine Clr Calc Pharmacy 53.3 ml/min; Est GFR (African American) 64.7 ml/min; Est GFR (Non-African American) 55.8 ml/min; Magnesium 1.9 mg/dl (1.7-2.4); Potassium 4.2 mmol/L (3.5-5.1)
[2022-12-23 07:12] LABS: Estimated Average Glucose 160 mg/dl; Hemoglobin A1C 7.2 % (4.5-5.6)
[2022-12-23] MEDS: ASPIRIN 81 MG ECTAB PO SCH (08:30)
[2022-12-23] MEDS: NICOTINE 21 MG/24 HR TDSY TD SCH (08:31)
[2022-12-23] MEDS: METOPROLOL SUCC 50MG EXT REL TAB PO SCH ×2 (08:31→21:07)
[2022-12-23] MEDS: VALSARTAN/SACUBITRIL 103/97MG TAB PO SCH ×2 (08:31→21:06)
[2022-12-23] MEDS: INSULIN ASPART PER UNIT CHARGE SC SCH ×4 (08:38→21:02)
[2022-12-23] MEDS: PANTOprazole 40 MG TAB PO SCH (09:13)
--- NOTE | 2022-12-23 10:24 | Cardiology Progress Note ---
Date of Service December 23, 2022 Assessment & Plan (1) Acute heart failure with preserved ejection fraction (HFpEF): (2) Substernal chest pain: (3) Dyspnea on exertion: (4) CAD (coronary artery disease): (5) S/P CABG x 2: (6) S/P coronary artery stent placement: (7) Dyslipidemia: (8) Frequent PVCs: Plan ASSESSMENT/PLAN: 1. Acute heart failure with preserved EF/dyspnea on exertion: Volume status seems much improved. Breathing not yet back to baseline. Agree with additional Lasix. Lasix 40 mg IV x1 ordered by primary hospitalist. We discussed the importance of low-sodium diet, less than 2000 mg daily upon discharge. Recommended daily weights at home and close follow-up with his primary equipment engineering technician and/or PCP. Continue SGLT2 inhibitor, Entresto, metoprolol succinate. Monitor renal function and electrolytes closely with diuresis. Would recommend oral diuretic upon discharge, likely Lasix 20 mg once daily with close follow-up labs and evaluation in the outpatient setting. Consider fluid restriction given hyponatremia of 1.5 L daily. 2. Chest pain: He has not had any further chest discomfort. Symptoms were likely driven by heart failure. No urgent indication for ischemic evaluation. If necessary, can be done as an outpatient. 3. CAD s/p PCI and then CABG x 2: Details not known. Records requested from previous cardiologists in [place] and [facility], but not yet available. Continue aspirin 81 mg daily. Continue beta-sánchez and high intensity statin therapy. 4. Smoking: Smoking cessation. 5. Hypertension: Blood pressure normotensive to mildly hypertensive. More diuretic today. 6. Dyslipidemia: Continue high intensity statin therapy. Goal LCL < 70. 7. PVCs: Reports palpitations at night but otherwise denies palpitations. PVCs not likely responsible for his presentation. Reported low pulse, appears to represent pulse deficit on palpation but heart rate is reasonable on telemetry. 8. Edema: Asymmetric, worse in the left lower extremity. Likely due to history of vein harvest from the left lower extremity. No DVT noted on Doppler. Edema much improved with diuretic. 9. Disposition: Cardiology will continue to follow. Follow-up with Dr. Jimenez of [facility] upon discharge. Patient care to merly with Dr. Atkinson of the primary hospitalist service. Admission and Anticipated Discharge Date Admission Date: December 22, 2022 Subjective No further chest pain. No orthopnea or shortness of breath at rest. Still has mild dyspnea on exertion but improved from presentation. Edema has improved. Feels better after Lasix. Denies syncope, near syncope, palpitations, or bleeding. Physical Exam Physical Exam: Gen.: No acute distress. Alert and oriented. HEENT: Anicteric sclera. Neck: No appreciable JVD or hepatojugular reflux. Cardiac: No ventricular heave. Regular with ectopy. Normal S1-S2. No murmurs, rubs, or gallops. Pulmonary: Clear to auscultation bilaterally without wheezes, rales, or rhonchi. Abdomen: Soft, nontender, nondistended, with normoactive bowel sounds. No bruits noted. Extremities: 2+ radial pulses bilaterally. 1+ posterior tibialis pulses bilaterally. Trace left lower extremity edema. (s/p left SVG harvest). No cyanosis. Psychiatric: Affect appears appropriate. Results & Data Vital Signs (Past 12 Hours) Vital Signs Temp Pulse Pulse Resp BP Pulse Ox O2 Del Method 12/23/22 08:26 36.3 C L 70 18 154/102 H 95 Room Air 12/23/22 08:00 56 L 12/23/22 02:26 36.7 C 78 18 101/61 93 Room Air 12/23/22 00:44 62 12/22/22 22:33 36.9 C 60 18 112/62 93 Room Air Intake & Output 12/21/22 12/22/22 12/23/22 12/24/22 06:59 06:59 06:59 06:59 Intake Total 470 / 470 Output Total 1000 / 1000 Balance -530 / -530 Weight 180 lb 12.465 oz Laboratory Results Laboratory Results - last 24 hr 12/22/22 12/22/22 12/22/22 10:31 10:31 10:31 WBC 5.44 RBC 5.61 Hgb 14.5 POC Hgb Hct 43.8 POC Hct MCV 78.1 L MCH 25.8 MCHC 33.1 RDW Std Deviation 44.7 RDW Coeff of Miriam 15.9 H Plt Count 124 L MPV 10.2 Immature Gran % (Auto) 0.4 Neut % (Auto) 64.3 Lymph % (Auto) 18.0 Coffey % (Auto) 10.3 Eos % (Auto) 6.3 Baso % (Auto) 0.7 Neut # (Auto) 3.50 Lymph # (Auto) 0.98 L Coffey # (Auto) 0.56 Eos # (Auto) 0.34 Baso # (Auto) 0.04 Immature Gran # (Auto) 0.02 D-Dimer POC Sodium Sodium 140 POC Potassium Potassium 4.2 POC Chloride Chloride 108 H Carbon Dioxide 26 POC Total CO2 Anion Gap 6 POC Anion Gap POC BUN BUN 15 Creatinine 1.29 POC Creatinine Est Cr Clr Drug Dosing Not Reportable Est GFR ( Amer) 64.7 Est GFR (Non-Af Amer) 55.8 BUN/Creatinine Ratio 11.6 Glucose 148 H POC Glucose POC Glucose (other) Estimat Average Glucose Hemoglobin A1c Calcium 8.8 POC Ioniz Calcium Aslma Magnesium 1.5 L Total Bilirubin 0.6 Direct Bilirubin 0.1 AST 17 ALT 18 Alkaline Phosphatase 43 Troponin I High Sens 8.6 B-Natriuretic Peptide Total Protein 6.2 Albumin 3.9 TSH Lyme Disease IgG Ab Negative Lyme Disease IgM Ab Negative 12/22/22 12/22/22 12/22/22 10:37 16:20 16:20 WBC RBC Hgb POC Hgb 15.3 Hct POC Hct 45 MCV MCH MCHC RDW Std Deviation RDW Coeff of Miriam Plt Count MPV Immature Gran % (Auto) Neut % (Auto) Lymph % (Auto) Coffey % (Auto) Eos % (Auto) Baso % (Auto) Neut # (Auto) Lymph # (Auto) Coffey # (Auto) Eos # (Auto) Baso # (Auto) Immature Gran # (Auto) D-Dimer POC Sodium 143 Sodium POC Potassium 4.2 Potassium POC Chloride 105 Chloride Carbon Dioxide POC Total CO2 23 L Anion Gap POC Anion Gap 20.0 POC BUN 14 BUN Creatinine POC Creatinine 1.3 Est Cr Clr Drug Dosing Est GFR ( Amer) Est GFR (Non-Af Amer) BUN/Creatinine Ratio Glucose POC Glucose POC Glucose (other) 149 H Estimat Average Glucose Hemoglobin A1c Calcium POC Ioniz Calcium Salma 1.17 Magnesium Total Bilirubin Direct Bilirubin AST ALT Alkaline Phosphatase Troponin I High Sens 9.1 B-Natriuretic Peptide Total Protein Albumin TSH 0.901 Lyme Disease IgG Ab Lyme Disease IgM Ab 12/22/22 12/22/22 12/22/22 16:21 16:57 17:33 WBC RBC Hgb POC Hgb Hct POC Hct MCV MCH MCHC RDW Std Deviation RDW Coeff of Miriam Plt Count MPV Immature Gran % (Auto) Neut % (Auto) Lymph % (Auto) Coffey % (Auto) Eos % (Auto) Baso % (Auto) Neut # (Auto) Lymph # (Auto) Coffey # (Auto) Eos # (Auto) Baso # (Auto) Immature Gran # (Auto) D-Dimer 690 H* POC Sodium Sodium POC Potassium Potassium POC Chloride Chloride Carbon Dioxide POC Total CO2 Anion Gap POC Anion Gap POC BUN BUN Creatinine POC Creatinine Est Cr Clr Drug Dosing Est GFR ( Amer) Est GFR (Non-Af Amer) BUN/Creatinine Ratio Glucose POC Glucose 68 L* POC Glucose (other) Estimat Average Glucose Hemoglobin A1c Calcium POC Ioniz Calcium Salma Magnesium Total Bilirubin Direct Bilirubin AST ALT Alkaline Phosphatase Troponin I High Sens B-Natriuretic Peptide 1397 H Total Protein Albumin TSH Lyme Disease IgG Ab Lyme Disease IgM Ab 12/22/22 12/22/22 12/22/22 17:35 20:27 22:34 WBC RBC Hgb POC Hgb Hct POC Hct MCV MCH MCHC RDW Std Deviation RDW Coeff of Miriam Plt Count MPV Immature Gran % (Auto) Neut % (Auto) Lymph % (Auto) Coffey % (Auto) Eos % (Auto) Baso % (Auto) Neut # (Auto) Lymph # (Auto) Coffey # (Auto) Eos # (Auto) Baso # (Auto) Immature Gran # (Auto) D-Dimer POC Sodium Sodium POC Potassium Potassium POC Chloride Chloride Carbon Dioxide POC Total CO2 Anion Gap POC Anion Gap POC BUN BUN Creatinine POC Creatinine Est Cr Clr Drug Dosing Est GFR ( Amer) Est GFR (Non-Af Amer) BUN/Creatinine Ratio Glucose POC Glucose 100 H 161 H POC Glucose (other) Estimat Average Glucose Hemoglobin A1c Calcium POC Ioniz Calcium Salma Magnesium Total Bilirubin Direct Bilirubin AST ALT Alkaline Phosphatase Troponin I High Sens 10.2 B-Natriuretic Peptide Total Protein Albumin TSH Lyme Disease IgG Ab Lyme Disease IgM Ab 12/23/22 12/23/22 12/23/22 06:06 06:06 06:06 WBC 5.44 RBC 5.39 Hgb 13.8 L POC Hgb Hct 42.4 POC Hct MCV 78.7 L MCH 25.6 MCHC 32.5 RDW Std Deviation 44.8 RDW Coeff of Miriam 15.9 H Plt Count 119 L MPV 10.4 Immature Gran % (Auto) Neut % (Auto) Lymph % (Auto) Coffey % (Auto) Eos % (Auto) Baso % (Auto) Neut # (Auto) Lymph # (Auto) Coffey # (Auto) Eos # (Auto) Baso # (Auto) Immature Gran # (Auto) D-Dimer POC Sodium Sodium 135 L POC Potassium Potassium 4.2 POC Chloride Chloride 104 Carbon Dioxide 25 POC Total CO2 Anion Gap 6 POC Anion Gap POC BUN BUN 15 Creatinine 1.29 POC Creatinine Est Cr Clr Drug Dosing 53.3 Est GFR ( Amer) 64.7 Est GFR (Non-Af Amer) 55.8 BUN/Creatinine Ratio 11.6 Glucose 115 H POC Glucose POC Glucose (other) Estimat Average Glucose 160 Hemoglobin A1c 7.2 H Calcium 8.6 POC Ioniz Calcium Salma Magnesium 1.9 Total Bilirubin Direct Bilirubin AST ALT Alkaline Phosphatase Troponin I High Sens B-Natriuretic Peptide Total Protein Albumin TSH Lyme Disease IgG Ab Lyme Disease IgM Ab 12/23/22 08:25 WBC RBC Hgb POC Hgb Hct POC Hct MCV MCH MCHC RDW Std Deviation RDW Coeff of Miriam Plt Count MPV Immature Gran % (Auto) Neut % (Auto) Lymph % (Auto) Coffey % (Auto) Eos % (Auto) Baso % (Auto) Neut # (Auto) Lymph # (Auto) Coffey # (Auto) Eos # (Auto) Baso # (Auto) Immature Gran # (Auto) D-Dimer POC Sodium Sodium POC Potassium Potassium POC Chloride Chloride Carbon Dioxide POC Total CO2 Anion Gap POC Anion Gap POC BUN BUN Creatinine POC Creatinine Est Cr Clr Drug Dosing Est GFR ( Amer) Est GFR (Non-Af Amer) BUN/Creatinine Ratio Glucose POC Glucose 114 H POC Glucose (other) Estimat Average Glucose Hemoglobin A1c Calcium POC Ioniz Calcium Salma Magnesium Total Bilirubin Direct Bilirubin AST ALT Alkaline Phosphatase Troponin I High Sens B-Natriuretic Peptide Total Protein Albumin TSH Lyme Disease IgG Ab Lyme Disease IgM Ab Diagnostic Findings ECG personally reviewed from 12/23/2022 at 5:11 AM: Sinus bradycardia with PVCs at 56 bpm. Poor R wave progression. Labs reviewed and notable for mild hyponatremia, normal potassium, stable renal function, mild thrombocytopenia. TSH normal on 12/22/2022. CTA chest 12/22/2022: No PE. Findings concerning for bronchitis with small bilateral pleural effusions per radiology. Heavily calcified atherosclerotic disease of the coronary arteries. Telemetry personally reviewed: Sinus with PVCs. No arrhythmia. Medications Administered Current Inpatient Medications Acetaminophen (Acetaminophen 325 Mg Tab) 650 mg PO Q4H PRN PRN Reason: Pain or Fever Stop: 01/21/23 15:02 Aspirin (Aspirin 81 Mg Ectab) 81 mg PO DAILY CLIF Stop: 01/22/23 08:59 Last Admin: 12/23/22 08:30 Dose: 81 mg Dextrose (Dextrose 50% 50 Ml Syringe) 25 - 50 ml IV UD PRN; Protocol PRN Reason: Hypoglycemia Protocol Stop: 01/21/23 15:02 Enoxaparin Sodium (Enoxaparin Inj 40 Mg/0.4 Ml Syr) 40 mg SQ Q24H CLIF Stop: 01/21/23 15:59 Last Admin: 12/22/22 16:58 Dose: 40 mg Glucagon (Glucagon For Inj 1 Mg Vial) 1 mg SQ UD PRN; Protocol PRN Reason: Hypoglycemia Protocol Stop: 01/21/23 15:02 Glucose (Glucose 10 Tab/Tube) 4 - 8 tab PO UD PRN; Protocol PRN Reason: Hypoglycemia Treatment Stop: 01/21/23 15:02 Glucose (Glucose 40% Gel 15 Gm Tube) 15 - 30 gm PO UD PRN; Protocol PRN Reason: Hypoglycemia Protocol Stop: 01/21/23 15:02 Insulin Aspart (Insulin Aspart Per Unit Charge) 0 units SC ACHS CLIF Stop: 01/21/23 16:29 Last Admin: 12/23/22 08:38 Dose: Not Given Insulin Glargine (Lantus Per Unit Charge) 20 units SC HS CLIF Stop: 01/21/23 20:59 Last Admin: 12/22/22 20:44 Dose: 20 units Metoprolol Succinate (Metoprolol Succ 50mg Ext Rel Tab) 50 mg PO BID CLIF Stop: 01/21/23 20:59 Last Admin: 12/23/22 08:31 Dose: 50 mg Miscellaneous (Remove Nicoderm Patch) 1 each N/A DAILY@0859 CLIF Stop: 01/21/23 08:58 Last Admin: 12/23/22 08:31 Dose: 1 each Miscellaneous (Carbohydrates For Hypoglycemia ) 15 - 30 gm PO UD PRN PRN Reason: Hypoglycemia Protocol Stop: 01/21/23 15:02 Nicotine (Nicotine 21 Mg/24 Hr Tdsy) 21 mg TD QAM CLIF Stop: 01/22/23 08:59 Last Admin: 12/23/22 08:31 Dose: 21 mg Pantoprazole Sodium (Pantoprazole 40 Mg Tab) 40 mg PO DAILY CLIF; Protocol Stop: 01/22/23 08:59 Last Admin: 12/23/22 09:13 Dose: 40 mg Rosuvastatin Calcium (Rosuvastatin Calcium 20 Mg Tab) 40 mg PO HS CLIF Stop: 01/21/23 20:59 Last Admin: 12/22/22 20:40 Dose: 40 mg Sacubitril/Valsartan (Valsartan/Sacubitril 103/97mg Tab) 1 tab PO BID CLIF Stop: 01/21/23 20:59 Last Admin: 12/23/22 08:31 Dose: 1 tab PG Care Time/CCT Total # of Minutes Spent Total Time Spent with Patient: Total time spent is greater than 50% in coordination of care (as documented) at patient's floor/unit and/or counseling patient: Coding Level of Care Code 48618 SUB INP/OBS CARE 3/50MIN Diagnoses Acute heart failure with preserved ejection fraction (HFpEF) I50.31 Substernal chest pain R07.2 Dyspnea on exertion R06.09 CAD (coronary artery disease) I25.10 S/P CABG x 2 Z95.1 S/P coronary artery stent placement Z95.5 Dyslipidemia E78.5 Frequent PVCs I49.3
[2022-12-23] MEDS ORDERED: FUROSEMIDE 40 MG/4 ML VIAL IV SCH (14:30)
--- NOTE | 2022-12-23 15:24 | Hospitalist Progress Note ---
Date of Service December 23, 2022 Assessment & Plan (1) Acute heart failure with preserved ejection fraction (HFpEF): (2) Chest pain: (3) Bigeminy: (4) History of CAD (coronary artery disease): Plan: Chest discomfort/pain resolved Still has exertional dyspnea CXR: No acute abnormalities DDimer 690 BNP 1397 CTA chest did not show PE but noted small bilateral pleural effusions and concern for bronchitis TTE showed mild conc LVH, EF 55-60%, mod dil LA, mild to mod MR, mild TR, RVSP 30-40 Continue IV lasix Discussed with Bull Gang Worker Still awaiting records per RN Continue home metoprolol succinate, entresto, rosuvastatin, aspirin Monitor electrolytes and replete as needed while on diuretics (5) Diabetes: Plan: HbA1c is 7.2 Continue insulin sq per protocol DVT ppx - lovenox sq I spent a total of 50 minutes coordinating, documenting and providing care for this patient excluding time spent in performance of separately billed services Admission and Anticipated Discharge Date Admission Date: December 22, 2022 Subjective Patient seen and examined Reports leg swelling is improved Still has exertional dyspnea and dry cough Denied any fever, chills, nausea, vomiting, abd pain, diarrhea Denied chest pain Physical Exam Constitutional: + well hydrated; no acute distress Eyes: PERRL, conjunctivae normal, anicteric sclerae ENMT: external ear and nose normal, oropharynx normal Respiratory: normal respiratory effort, lungs clear to auscultation Cardiovascular: Rate/Rhythm: regular rate S1 S2 Gastrointestinal (Abdomen): normal bowel sounds, soft, nontender, no hepatosplenomegaly Musculoskeletal: Trace pedal edema Neurologic: PERRL, EOMI, accommodation nl, no face palsy, no dysarthria Psychiatric: A+Ox3, euthymic affect Results & Data Results & Data Vital Signs (Past 12 Hours) Vital Signs Temp Pulse Pulse Resp BP Pulse Ox O2 Del Method 12/23/22 11:57 36.4 C L 57 L 18 143/61 H 94 Room Air 12/23/22 09:00 Room Air 12/23/22 08:26 36.3 C L 70 18 154/102 H 95 Room Air 12/23/22 08:00 56 L Laboratory Results Abnormal lab results 12/22/22 12/22/22 12/22/22 Range/Units 16:21 16:57 17:33 Hgb (14.0-18.0) g/dl MCV (80.0-100.0) fL RDW Coeff of Miriam (11.5-14.5) % Plt Count (130-400) K/uL D-Dimer 690 H* (0-500) ug/L FEU Sodium (136-145) mmol/L Glucose (70-99(Fasting)) mg/dl POC Glucose 68 L* (70-99) mg/dl Hemoglobin A1c (4.5-5.6) % B-Natriuretic Peptide 1397 H (0-100) pg/ml 12/22/22 12/22/22 12/23/22 Range/Units 17:35 20:27 06:06 Hgb 13.8 L (14.0-18.0) g/dl MCV 78.7 L (80.0-100.0) fL RDW Coeff of Miriam 15.9 H (11.5-14.5) % Plt Count 119 L (130-400) K/uL D-Dimer (0-500) ug/L FEU Sodium (136-145) mmol/L Glucose (70-99(Fasting)) mg/dl POC Glucose 100 H 161 H (70-99) mg/dl Hemoglobin A1c (4.5-5.6) % B-Natriuretic Peptide (0-100) pg/ml 12/23/22 12/23/22 12/23/22 Range/Units 06:06 06:06 08:25 Hgb (14.0-18.0) g/dl MCV (80.0-100.0) fL RDW Coeff of Miriam (11.5-14.5) % Plt Count (130-400) K/uL D-Dimer (0-500) ug/L FEU Sodium 135 L (136-145) mmol/L Glucose 115 H (70-99(Fasting)) mg/dl POC Glucose 114 H (70-99) mg/dl Hemoglobin A1c 7.2 H (4.5-5.6) % B-Natriuretic Peptide (0-100) pg/ml 12/23/22 Range/Units 11:56 Hgb (14.0-18.0) g/dl MCV (80.0-100.0) fL RDW Coeff of Miriam (11.5-14.5) % Plt Count (130-400) K/uL D-Dimer (0-500) ug/L FEU Sodium (136-145) mmol/L Glucose (70-99(Fasting)) mg/dl POC Glucose 121 H (70-99) mg/dl Hemoglobin A1c (4.5-5.6) % B-Natriuretic Peptide (0-100) pg/ml
[2022-12-23] MEDS: ENOXAPARIN INJ 40 MG/0.4 ML SYR SQ SCH (17:58)
[2022-12-23] MEDS: LANTUS PER UNIT CHARGE SC SCH (21:03)
[2022-12-23] MEDS: ROSUVASTATIN CALCIUM 20 MG TAB PO SCH (21:07)
[2022-12-24 05:58] LABS: Mean Corpuscular Hemoglobin 25.1 pg (25.0-34.0); Mean Corpuscular Hgb Conc 32.6 g/dL (32.0-36.0); Mean Corpuscular Volume 77.2 fL (80.0-100.0); Mean Platelet Volume 10.2 fL (9.4-12.4); Platelet Count 121 K/uL (130-400); RDW Coefficient of Variation 15.5 % (11.5-14.5); Red Blood Count 5.57 M/uL (4.70-6.10); White Blood Count 5.38 K/ul (4.8-10.8)
[2022-12-24 06:12] LABS: Calcium 8.5 mg/dl (8.6-10.3); Creatinine Clr Calc Pharmacy 47.1 ml/min; Est GFR (African American) 55.7 ml/min; Magnesium 1.8 mg/dl (1.7-2.4); Phosphorus 3.5 mg/dl (2.5-4.9); Potassium 4.1 mmol/L (3.5-5.1)
[2022-12-24] MEDS: INSULIN ASPART PER UNIT CHARGE SC SCH ×2 (08:32→13:00)
[2022-12-24] MEDS: PANTOprazole 40 MG TAB PO SCH (08:34)
[2022-12-24] MEDS: VALSARTAN/SACUBITRIL 103/97MG TAB PO SCH (08:35)
[2022-12-24] MEDS: NICOTINE 21 MG/24 HR TDSY TD SCH (08:36)
[2022-12-24] MEDS: METOPROLOL SUCC 50MG EXT REL TAB PO SCH (08:41)
[2022-12-24] MEDS: ASPIRIN 81 MG ECTAB PO SCH (09:32)
--- NOTE | 2022-12-24 12:14 | Discharge Summary ---
Date of Service December 24, 2022 Admission HPI Per Admitting Provider 72-year-old male with PMH CAD s/p CABG x 2 2011, DM type II, GERD, and other problems listed below who presents to the ED for evaluation of chest pain and shortness of breath. History obtained from the patient. There are no outside records to review. Patient reports exertional shortness of breath over the past 4 days. He reports a "strange feeling" in his chest that he states he cannot describe. Reports symptoms are similar to what he had prior to his CABG in 2011. He reports he feels palpitations at night when he lies down. Denies orthopnea and lower extremity edema. No lightheadedness, dizziness, d iaphoresis, syncopal events. States he has a chronic cough from smoking history, cough is slightly worse than baseline. Cough is nonproductive. Denies fevers and chills. No abdominal pain, nausea, vomiting, diarrhea. Denies urinary symptoms. In the ED, EKG shows a sinus rhythm with bigeminy. Vitals are stable. Initial HS troponin is negative. Admission Exam Per Admitting Provider He is laying in bed currently in ED in [facility]. reports no discomfort. pads applied on pt's chest. Pt is awake oriented, answering appropriately. Lung exam w/ positive mild diffuse rhonchi, no wheezing. Heart sounds regular/ bradycardic w/ ectopy. No LE edema noted. Abdomen soft, nontender. Skin is warm and dry. Principal Diagnosis Acute diastolic heart failure Discharge Exam Constitutional + well hydrated; no acute distress Eyes PERRL, conjunctivae normal, anicteric sclerae ENMT external ear and nose normal, oropharynx normal Respiratory normal respiratory effort, lungs clear to auscultation Cardiovascular Rate/Rhythm: regular rate S1 S2 Gastrointestinal (Abdomen) normal bowel sounds, soft, nontender, no hepatosplenomegaly Musculoskeletal No pedal edema Neurologic PERRL, EOMI, accommodation nl, no face palsy, no dysarthria Psychiatric A+Ox3, euthymic affect Discharge Data Allergies Allergy/AdvReac Type Severity Reaction Status Date / Time antibiotics AdvReac Diarrhea Uncoded 12/22/22 12:07 Consultations 12/22/22 12:07 ED Decision to Admit Stat 12/22/22 12:20 HIM [Consult Health Information Management] Routine 12/22/22 15:03 Consult Cardiology Routine Ordered Studies 12/22/22 17:30 US venous doppler LE LT Routine 12/22/22 22:18 CT angio chest PE protocol Urgent Hospital Course (1) Acute heart failure with preserved ejection fraction (HFpEF): (2) Chest pain: (3) Bigeminy: (4) History of CAD (coronary artery disease): Patient presented with chest discomfort and exertional dyspnea as well leg edema CXR: No acute abnormalities DDimer 690 BNP 1397 CTA chest did not show PE but noted small bilateral pleural effusions and concern for bronchitis TTE showed mild conc LVH, EF 55-60%, mod dil LA, mild to mod MR, mild TR, RVSP 30-40 Was started on IV lasix with good diuresis Leg edema resolved. Exertional dyspnea improved Was evaluated by Cardiology Discharged on lasix po 20mg daily Patient to follow up with his PCP and Barrel Assembler Helper PCP to monitor renal function/electrolytes Continue home metoprolol succinate, entresto, rosuvastatin, aspirin (5) Diabetes: HbA1c is 7.2 Continue home antidiabetics Total Time Total Time Spent Total Time Spent (In Minutes): 45 Total Time Includes: Examination of the Patient, Discharge Planning, Medication Reconciliation and Communication With Other Providers Discharge Plan Discharge Items Patient Disposition: Home - Self-Care Reason For Visit: CHEST PAIN Discharge Diagnosis: Acute diastolic heart failure Activity: Resume your previous activity Non-emergency contact: Primary Care Provider and Barrel Assembler Helper Call non-emergency contact if: you have any medication questions and your symptoms worsen Follow-up/Referrals: Alin Evans PA-C [Primary Care Provider] - 01/04/23 10:30 am Diet: Carb Consistent or DM2, Heart Healthy and Low Sodium (2gm) Addtl Attending Provider Instructions: Mr Page You came to the hospital complaining of chest pain and shortness of breath You were evaluated and managed for congestive heart failure. You are being discharged on tablet furosemide 20mg daily. Please continue your other home medications. Please ensure follow up with your Primary Doctor and Barrel Assembler Helper within 1-2 weeks. It was a pleasure taking care of you. Pending Studies at Discharge: No Stand-Alone Forms: My [employer], Smoking Cessation Medications and DC Order Prescriptions: New furosemide [Lasix] 20 mg tablet 20 mg PO DAILY Qty: 30 0RF Rx Instructions: Start on 12/25/22 Continued omeprazole 40 mg capsule,delayed release(DR/EC) 40 mg PO DAILY rosuvastatin 40 mg tablet 40 mg PO HS insulin glargine [Lantus Solostar U-100 Insulin] 100 unit/mL (3 mL) insulin pen 30 unit SUBCUT HS Entresto 97-103 mg tablet 1 tab PO BID aspirin 81 mg Capsule 81 mg PO DAILY metoprolol succinate 50 mg tablet extended release 24 hr 50 mg PO BID Farxiga 10 mg tablet 10 mg PO DAILY Discharge Orders: Discharge Order- CHF (Routine); Ordered 12/24/22 Ordered By: China Salinas/Other Patient Handouts: Managing Type 2 Diabetes Admission Data Admit Date/Time: 12/23/22 15:23 Attending Provider: China Wade I. Admit Provider: Javier Luong Primary Care Provider: Alin Evans Other Providers: Javier Luong ; Heath Conrad Other Interventions: Discharge Summary Assessment (RN) Last Done: 12/24/22 12:55
--- NOTE | 2022-12-26 08:20 | Electrocardiogram Report ---
Test Reason : Blood Pressure : / mmHG Vent. Rate : 069 BPM Atrial Rate : 069 BPM P-R Int : 148 ms QRS Dur : 082 ms QT Int : 428 ms P-R-T Axes : 054 -17 088 degrees QTc Int : 458 ms Poor data quality, interpretation may be adversely affected Sinus rhythm with frequent Premature ventricular complexes in a pattern of bigeminy Possible Left atrial enlargement Low voltage QRS Nonspecific T wave abnormality Abnormal ECG No previous ECGs available Confirmed by Heath Conrad ([id number]) on 12/26/2022 8:19:58 AM Referred By: REFERRED SELF Confirmed By:Heath Conrad
--- NOTE | 2022-12-27 14:15 | Electrocardiogram Report ---
Test Reason : Blood Pressure : / mmHG Vent. Rate : 056 BPM Atrial Rate : 056 BPM P-R Int : 168 ms QRS Dur : 082 ms QT Int : 466 ms P-R-T Axes : 050 -21 057 degrees QTc Int : 449 ms Sinus bradycardia with frequent Premature ventricular complexes Cannot rule out Anterior infarct , age undetermined Nonspecific T wave abnormality Abnormal ECG When compared with ECG of 22-DEC-2022 10:26, No significant change Confirmed by Heath Conrad ([id number]) on 12/27/2022 2:14:47 PM Referred By: REFERRED SELF Confirmed By:Heath Conrad
--- NOTE | 2022-12-27 15:59 | Electrocardiogram Report ---
Test Reason : Blood Pressure : / mmHG Vent. Rate : 053 BPM Atrial Rate : 053 BPM P-R Int : 166 ms QRS Dur : 082 ms QT Int : 466 ms P-R-T Axes : 046 -18 089 degrees QTc Int : 437 ms Sinus bradycardia with frequent Premature ventricular complexes Low voltage QRS Septal infarct (cited on or before 23-DEC-2022) Nonspecific T wave abnormality Abnormal ECG When compared with ECG of 23-DEC-2022 05:11, Questionable change in initial forces of Septal leads Confirmed by Heath Conrad ([id number]) on 12/27/2022 3:59:16 PM Referred By: REFERRED SELF Confirmed By:Heath Conrad
== END 2022-12-24 13:10 | disposition home or self-care (01) | DRG 291 ==
LOC: ED 10:17 → EDINP 10:17 → SUATTDRO 12:18 → 4W 15:03